=== PATIENT | female | born 1990 | race Caucasian/White ===

== ENCOUNTER 2016-07-10 06:43 | Inpatient (IN) | payer MEDICARE, MEDICAID ==
[2016-07-10] MEDS ORDERED: CEFAZOLIN SODIUM 2 GRAM DUPLEX 2 G in Premix (D5W) 50 ml 1 EACH IV PRN (07:01)
[2016-07-10 07:13] LABS: HEMATOCRIT 32.6 % (37.0-47.0); HEMOGLOBIN 10.9 gm/l (12.0-16.0); MEAN CELL VOLUME 88.3 fl (81.0-99.0); MEAN CORPUSCULAR HEMOGLOBIN 29.5 pg (27.0-31.0); MEAN CORPUSCULAR HGB CONC 33.4 g/dl (33.0-37.0); RED CELL DISTRIBUTION WIDTH 14.5 % (11.5-14.5)
[2016-07-10] MEDS ORDERED: SODIUM CHLORIDE 0.9% FLUSH 10 ML ONE (07:13)
[2016-07-10] MEDS ORDERED: LACTATED RINGERS 1,000 ML IV SCH (07:15)
[2016-07-10] MEDS ORDERED: OXYTOCIN 10 UNITS/ML VIAL ONE ×3 (07:16→08:17)
[2016-07-10] MEDS ORDERED: SPINAL PROCEDURAL TRAY 1 EACH ONE (07:16)
[2016-07-10] MEDS ORDERED: MORPHINE SULFATE (DURAMORPH) 1 MG/ML 10ML AMP ONE (07:16)
[2016-07-10] MEDS ORDERED: CEFAZOLIN SODIUM 2 GRAM DUPLEX 50 ML IV ONE (07:26)
[2016-07-10] MEDS ORDERED: PROPOFOL 20 ML IV ONE (07:35)
[2016-07-10] MEDS ORDERED: SUCCINYLCHOLINE CHL 20 MG/ML DOSE ONE (07:35)
[2016-07-10] MEDS ORDERED: FENTANYL 100 MCG/2 ML VIAL ONE ×4 (07:53→09:22)
[2016-07-10] MEDS ORDERED: ROCURONIUM BROMIDE 10 MG/ML DOSE IV ONE (07:53)
[2016-07-10] MEDS ORDERED: LIDOCAINE 2% (PRES FREE) 5 ML VIAL ONE (07:55)
[2016-07-10] MEDS ORDERED: MORPHINE SULFATE 2 MG/ML SYRINGE IV PRN (08:10)
[2016-07-10] MEDS ORDERED: NALOXONE HCL 0.4 MG/ML VIAL IV PRN (08:10)
[2016-07-10] MEDS ORDERED: DIPHENHYDRAMINE HCL 50 MG/1 ML VIAL IV PRN ×2 (08:10→09:56)
[2016-07-10] MEDS ORDERED: HYDROMORPHONE HCL 2 MG/ML SYRINGE IV PRN (08:10)
[2016-07-10] MEDS ORDERED: PROMETHAZINE HCL 25 MG/ML VIAL IM PRN (08:10)
[2016-07-10] MEDS ORDERED: MORPHINE SULFATE 10 MG/ML SYRINGE IV PRN (08:10)
[2016-07-10] MEDS ORDERED: ONDANSETRON 4 MG/2ML 2 ML VIAL IV PRN ×2 (08:10→09:56)
[2016-07-10] MEDS ORDERED: EPHEDRINE SULFATE 50 MG/ML 1ML VIAL IV PRN (08:10)
[2016-07-10] MEDS ORDERED: HYDROMORPHONE HCL 1 MG/ML SYRINGE IV PRN (08:10)
[2016-07-10] MEDS ORDERED: MORPHINE SULFATE 4 MG/ML SYRINGE IV PRN (08:10)
[2016-07-10] MEDS: KETOROLAC TROMETHAMINE 30 MG/ML 1 ML VIAL IV SCH ×3 (08:10→21:51)
[2016-07-10] MEDS ORDERED: NALBUPHINE HCL 20 MG/ML AMP IV PRN (08:10)
[2016-07-10] MEDS ORDERED: NEOSTIGMINE METHYLSULFATE 1 MG/ML DOSE ONE (08:13)
[2016-07-10] MEDS ORDERED: GLYCOPYRROLATE 0.2 MG/ML 1ML VIAL ONE (08:13)
[2016-07-10] MEDS ORDERED: EPHEDRINE SULFATE UD SYR 25 MG 25 MG/5 ML SYRINGE IV ONE (08:38)
[2016-07-10] MEDS ORDERED: PUMP TUBING ONE (08:56)
[2016-07-10] MEDS: FENTANYL 100 MCG/2 ML VIAL IV PRN ×2 (09:15→09:25)
--- NOTE | 2016-07-10 09:19 | PDOC37 ---
Procedure: Section Date of Procedure: 07/10/16 Start Time: 07:40 Preoperative Diagnosis: 1. 38+3 week intrauterine . 2. Caitlyn breech presentation 3. Active labor Postoperative Diagnosis: Same Surgeon: Emigdio Diaz MD Assist: Shyanne Cervantes MD Indication for Procedure: 26 year old, at 38 weeks 3 days presented in active labor, dilated to 5cm, in caitlyn breech position. Anesthesia: Spinal with Duramorph that did not facilitate pain relief and was followed by general anesthesia. Some lidocaine was applied to the edges of the incision before general was performed in an attempt to afford the pt some anesthesia. Complications: None Estimated Blood Loss: 600 mLs IV Fluids: 2700 mLs of LR Medications: 2 gm of Ancef for routine prophylaxis. 30 units of Pitocin. Urine Output: 50 mLs of clear urine Findings: Normal uterus, ovaries, and tubes. Procedure: The patient was taken to the operating room where epidural anesthesia was found to be inadequate and general anesthesia was then performed after waiting 10 min. for the spinal anesthesia to take effect. She was then prepared and draped in the normal sterile fashion in the dorsal supine position with a leftward tilt. A timeout was performed. A Pfannensteil skin incision was then made with the scalpel and carried through to the underlying layer of fascia with the scalpel. The fascia was incised in the midline and the incision extended laterally with the Martinez scissors. The superior aspect of the fascial incision was then grasped with the Apolinar clamps, elevated, and the underlying rectus muscles dissected off bluntly and sharply where needed. Attention was then turned to the inferior aspect of the incision which, in a similar fashion, was grasped, tented up with the Apolinar clamps, and the rectus muscle dissected off bluntly and sharply with Martinez scissors. The rectus muscles were then in the midline, and the peritoneum was identified and entered bluntly. The peritoneal incision was then extended with good visualization of the bladder. The bladder blade was then inserted but no bladder flap was created. The bladder blade was then reinserted and the lower uterine segment incised in a transverse fashion with the scalpel. The uterine incision was then extended laterally by pulling superolaterally on both sides. Membranes were ruptured and fluid was clear. The bladder blade was removed the infant's bottom was grasped and flexed up. Each leg was pulled out and extended and then a dry towel was placed around the thorax. Each arm was swept out, followed by head flexion using the towel around the thorax as traction. The cord was clamped and cut. The infant was handed off to the waiting staff field engineer. Cord gases were not sent The placenta was then delivered with gentle cord traction. The uterus was then exteriorized and cleared of all clots and debris. The uterine incision was repaired with 0 chromic in a running, locked fashion. A second layer of the same suture was used in an imbricating fashion to obtain excellent hemostasis. The gutters were cleared of all clots. The uterus was returned to the abdomen. The peritoneum was closed with 4-0 vicryl. The fascia was reapproximated with 0 Vicryl in a running fashion. The subcutaneous tissue was reapproximated with 4- 0 vicryl. The skin was closed with 4-0 monocryl in a subcuticular fashion. The patient tolerated the procedure well. Sponge, lap and needle counts were correct times three. A debriefing was held at the end of the procedure with anesthesia and nursing staff. The patient was taken to the recovery room in stable condition.
--- NOTE | 2016-07-10 09:22 | PCMAN ---
OB Admission Note - History : 1 Term: 0 EDC:: 07/21/16 Gestational Age (weeks): 38 Days (#/7): 3 Admit Cervical Dilation:: 5 Admit Cervical Effacement (%):: 80 Admit Station:: -1 Admit Presentaton:: caitlyn breech Membrane Status: Ruptured Contractions: Yes Contraction Frequency:: 3 in 10 Summary of Course:: Pt presented to me at >20 weeks in [facility] for her first OB visit, so dating was not very accurate. She then was lost to f/u until last week when she started coming into the office again to be seen. UDS in the office was negative last week. She was GBS negative. Otherwise, uneventful course, just very sparse care and late to care. - Labs GBS Status: Negative Abnormal Labs: None
[2016-07-10] MEDS ORDERED: BENZOCAINE/MENTHOL 60 APPLIC/BOT TP PRN (09:56)
[2016-07-10] MEDS ORDERED: KETOROLAC TROMETHAMINE 30 MG/ML 1 ML VIAL IV PRN (09:56)
[2016-07-10] MEDS ORDERED: OXYCODONE/ACETAMINOPHEN 5/325 MG TABLET PO PRN (09:56)
[2016-07-10] MEDS ORDERED: DIPHENHYDRAMINE HCL 25 MG CAPSULE PO PRN (09:56)
[2016-07-10] MEDS ORDERED: DOCUSATE SODIUM 100 MG CAPSULE PO SCH (09:56)
[2016-07-10] MEDS ORDERED: LANOLIN 50 APPLIC/7G TUBE TP PRN ×2 (09:56)
[2016-07-10] MEDS: PRENATAL VIT/FE FUMARATE/FA 1 TABLET PO SCH (09:56)
[2016-07-10] MEDS ORDERED: MAGNESIUM HYDROXIDE 30 ML UDCUP PO PRN (09:56)
[2016-07-10 10:45] VITALS: BMI 25.6
[2016-07-10] MEDS ORDERED: LACTATED RINGERS 1,000 ML ONE (10:47)
[2016-07-10] MEDS ORDERED: IV START KIT ONE (10:47)
[2016-07-10 11:03] LABS: AMPHETAMINES/METHAMPHETAMINES NEGATIVE (NEGATIVE); COCAINE NEGATIVE (NEGATIVE); MARIJUANA NEGATIVE (NEGATIVE); METHADONE NEGATIVE (NEGATIVE); OPIATES NEGATIVE (NEGATIVE); TRICYCLIC ANTIDEPRESSANTS NEGATIVE (NEGATIVE)
[2016-07-10] MEDS: DOCUSATE SODIUM 100 MG CAPSULE PO SCH ×2 (15:40→21:50)
[2016-07-11] MEDS: OXYCODONE HCL 5 MG TABLET PO PRN ×7 (02:27→22:17)
[2016-07-11] MEDS: KETOROLAC TROMETHAMINE 30 MG/ML 1 ML VIAL IV SCH ×2 (04:33→13:24)
[2016-07-11 06:30] LABS: HEMATOCRIT 23.2 % (37.0-47.0); HEMOGLOBIN 7.5 gm/l (12.0-16.0); MEAN CELL VOLUME 89.6 fl (81.0-99.0); MEAN CORPUSCULAR HGB CONC 32.3 g/dl (33.0-37.0); RED CELL DISTRIBUTION WIDTH 14.6 % (11.5-14.5)
[2016-07-11] MEDS ORDERED: KETOROLAC TROMETHAMINE 30 MG/ML 1 ML VIAL IV PRN (08:10)
--- NOTE | 2016-07-11 08:58 | PDOC44 ---
- Subjective Day: 1 Pt doing okay. She has gotten up and ambulated. Very tired, frustrated with . Reports Pain Tolerable, Reports , Reports Lochia Light - Objective Temp Pulse Resp BP Pulse Ox 98.0 F 77 18 119/57 98 07/11/16 06:06 07/11/16 06:06 07/11/16 06:06 07/11/16 06:06 07/10/16 18:15 Lab Results 07/11/16 05:30 WBC 23.0 H RBC 2.59 L Hgb 7.5 L D Hct 23.2 L Plt Count 329 07/11/16 05:30 MCHC 32.3 L RDW 14.6 H Current Medications Generic Name Dose Route Start Last Admin Trade Name Freq PRN Reason Stop Dose Admin Benzocaine/Menthol 1 applic 07/10/16 09:56 Dermoplast TP PRN PRN Patient Comfort Diphenhydramine HCl 25 - 50 mg 07/10/16 09:56 Benadryl PO Q6H PRN Itching (Mild/Moderate) Diphenhydramine HCl 25 - 50 mg 07/10/16 09:56 Benadryl IV Q6H PRN Itching (Severe) Docusate Sodium 100 mg 07/10/16 09:56 07/10/16 21:50 Colace PO 100 mg BID LEX Administration Emollient Ointment 1 applic 07/10/16 09:56 [id number] TP PRN PRN sore nipples Fentanyl Citrate 25 - 50 mcg 07/10/16 09:54 07/10/16 09:25 Fentanyl IV 50 mcg Q2M PRN Administration Pain Ibuprofen 800 mg 07/10/16 09:56 Motrin PO Q6H PRN Pain (Mild) Ketorolac Tromethamine 30 mg 07/11/16 08:10 Toradol IV Q6H PRN Pain (Mild/Moderate) Magnesium Hydroxide 30 ml 07/10/16 09:56 Milk Of Magnesia PO BEDTIME PRN Constipation Multivi/Iron Carb/Fe Sulf/FA/Prenat 1 tab 07/10/16 09:56 07/10/16 09:56 Plus PO Not Given DAILY LEX Ondansetron HCl 4 mg 07/10/16 09:56 Zofran IV Q6H PRN Nausea/Vomiting Oxycodone HCl 5 - 10 mg 07/10/16 09:56 07/11/16 06:04 Roxicodone PO 5 mg Q3H PRN Administration Pain (Severe) Oxycodone/Acetaminophen 1 - 2 tab 07/10/16 09:56 07/10/16 20:02 Percocet 5/325 PO 1 tab Q4H PRN Administration Pain (Moderate) Sodium Chloride 10 ml 07/10/16 17:00 07/11/16 07:22 Normal Saline 10ml Flush IV Not Given Q8HR LEX Sodium Chloride 10 ml 07/10/16 09:56 07/11/16 04:34 Normal Saline 10ml Flush IV 10 ml PRN PRN Administration IV Flush - Physical Exam Skin: Other (Bandage still in place - to be taken off in the shower today.) - Problems:Assessment/Plan (1) care following delivery Status: AcuteAssessment/Plan: POD #1 s/p PLTCS for caitlyn breech presentation - bandage still in place - will have it taken off in the shower today - encourage ambulation - remove rutherford catheter - plan to have her visit with today as well as care management to organize support at home - anticipate full 3 day stay Disposition: Stable, Anticipate DC to Home
[2016-07-11] MEDS: IBUPROFEN 800 MG TABLET PO PRN ×3 (11:26→23:58)
[2016-07-11] MEDS: DOCUSATE SODIUM 100 MG CAPSULE PO SCH ×2 (11:26→22:17)
[2016-07-11] MEDS: PRENATAL VIT/FE FUMARATE/FA 1 TABLET PO SCH (11:26)
[2016-07-12] MEDS: OXYCODONE HCL 5 MG TABLET PO PRN ×5 (01:52→19:49)
[2016-07-12] MEDS: IBUPROFEN 800 MG TABLET PO PRN ×3 (06:02→19:49)
--- NOTE | 2016-07-12 07:29 | PDOC44 ---
- Subjective Day: 2 pt feeling better after getting some sleep last night with the nurses feeding baby with banked breastmilk and what mom had pumped. Reports Flatus, Reports Pain Tolerable, Reports , Reports Tolerating Regular Diet, Denies Nausea, Denies Vomiting - Objective Temp Pulse Resp BP Pulse Ox 97.8 F 71 16 123/60 98 07/12/16 01:49 07/12/16 01:49 07/12/16 01:49 07/12/16 01:49 07/10/16 18:15 Current Medications Generic Name Dose Route Start Last Admin Trade Name Freq PRN Reason Stop Dose Admin Benzocaine/Menthol 1 applic 07/10/16 09:56 Dermoplast TP PRN PRN Patient Comfort Diphenhydramine HCl 25 - 50 mg 07/10/16 09:56 Benadryl PO Q6H PRN Itching (Mild/Moderate) Diphenhydramine HCl 25 - 50 mg 07/10/16 09:56 Benadryl IV Q6H PRN Itching (Severe) Docusate Sodium 100 mg 07/10/16 09:56 07/11/16 22:17 Colace PO 100 mg BID LEX Administration Emollient Ointment 1 applic 07/10/16 09:56 [id number] TP PRN PRN sore nipples Fentanyl Citrate 25 - 50 mcg 07/10/16 09:54 07/10/16 09:25 Fentanyl IV 50 mcg Q2M PRN Administration Pain Ibuprofen 800 mg 07/10/16 09:56 07/12/16 06:02 Motrin PO 800 mg Q6H PRN Administration Pain (Mild) Ketorolac Tromethamine 30 mg 07/11/16 08:10 Toradol IV Q6H PRN Pain (Mild/Moderate) Magnesium Hydroxide 30 ml 07/10/16 09:56 Milk Of Magnesia PO BEDTIME PRN Constipation Multivi/Iron Carb/Fe Sulf/FA/Prenat 1 tab 07/10/16 09:56 07/11/16 11:26 Plus PO 1 tab DAILY LEX Administration Ondansetron HCl 4 mg 07/10/16 09:56 Zofran IV Q6H PRN Nausea/Vomiting Oxycodone HCl 5 - 10 mg 07/10/16 09:56 07/12/16 06:02 Roxicodone PO 10 mg Q3H PRN Administration Pain (Severe) Oxycodone/Acetaminophen 1 - 2 tab 07/10/16 09:56 07/10/16 20:02 Percocet 5/325 PO 1 tab Q4H PRN Administration Pain (Moderate) Sodium Chloride 10 ml 07/10/16 17:00 07/11/16 11:31 Normal Saline 10ml Flush IV 10 ml Q8HR LEX Administration Sodium Chloride 10 ml 07/10/16 09:56 07/11/16 04:34 Normal Saline 10ml Flush IV 10 ml PRN PRN Administration IV Flush - Physical Exam General: Afebrile, No Acute Distress Psych/Mental Status: Mood/Affect Appropriate, Bonding Well Neurological: Alert, Oriented x 4 Lungs: Clear to Auscultation Bilaterally Cardiovascular: Regular Rate and Rhythm Breast: Nipples Intact Fundus: Firm, Midline Extremities: Full ROM, No Edema, No Tenderness Skin: Normal Color, Warm, Dry, Intact, No Rash Wound MESS ATTENDANT CREW: Dressing Clean/Dry/Intact, Well Approximated - Problems:Assessment/Plan (1) care following delivery Status: AcuteAssessment/Plan: POD #2 s/p PLTCS for caitlyn breech presentation - Incision CDI - encourage ambulation - plan to have her visit with today as well as care management to organize support at home - d/c home on 07/13/16 (2) Anemia, Status: AcuteAssessment/Plan: starting iron today Disposition: Stable, Anticipate DC Home Tomorrow
[2016-07-12] MEDS: FERROUS SULFATE (65 Fe) 325 MG TABLET PO SCH (10:07)
[2016-07-12] MEDS: PRENATAL VIT/FE FUMARATE/FA 1 TABLET PO SCH (10:07)
[2016-07-12] MEDS: DOCUSATE SODIUM 100 MG CAPSULE PO SCH ×2 (10:07→21:26)
[2016-07-13] MEDS: OXYCODONE HCL 5 MG TABLET PO PRN ×3 (00:39→08:03)
[2016-07-13] MEDS: IBUPROFEN 800 MG TABLET PO PRN ×2 (03:14→11:02)
[2016-07-13 06:18] LABS: HEMATOCRIT 25.7 % (37.0-47.0); HEMOGLOBIN 8.3 gm/l (12.0-16.0); MEAN CELL VOLUME 89.5 fl (81.0-99.0); MEAN CORPUSCULAR HEMOGLOBIN 28.9 pg (27.0-31.0); MEAN CORPUSCULAR HGB CONC 32.3 g/dl (33.0-37.0); RED CELL DISTRIBUTION WIDTH 14.8 % (11.5-14.5)
--- NOTE | 2016-07-13 07:46 | PDOC39B ---
Hospital Course: ADMIT DATE: 07/10/16 DISCHARGE DATE: 07/13/16 ADMISSION DIAGNOSES: Caitlyn Breech presentation, in active labor, term PROCEDURES: section with spinal followed by general anesthesia HISTORY OF PRESENT ILLNESS: 26 year old G1 T1 L0 at 38 weeks 3 days presenting with term active labor with baby found to be in caitlyn breech position. I was then called to come in and confirm and start the process for a section. HOSPITAL COURSE: The patient underwent delivery via c/s indicated for caitlyn breech position. The surgery was uncomplicated other than the spinal anesthesia being unable to provide adequate pain control which resulted in the pt receiving general anesthesia. By day of discharge the patient is ambulating, eating, voiding, and passing flatus without difficulty. Pain is controlled and lochia is appropriate. She is with some anxiety, but is working with her closely and she has an appointment with the [facility] on wednesday07/15/16. f/u with myself for incision check on 07/17/16. Sutures used, no loy needing to be taken out. - Physical Exam Vital Signs: Temp Pulse Resp BP Pulse Ox 98.4 F 88 16 121/66 98 07/13/16 03:19 07/13/16 03:19 07/13/16 03:19 07/13/16 03:19 07/10/16 18:15 - Discharge Diagnosis (1) care following delivery Status: AcuteAssessment/Plan: POD #2 s/p PLTCS for caitlyn breech presentation - Incision CDI - encourage ambulation - plan to have her visit with today as well as care management to organize support at home - d/c home on 07/13/16 (2) Anemia, Status: AcuteAssessment/Plan: starting iron today - Discharge Plan Prescriptions: Docusate Sodium [COLACE 100 MG CAPSULE (SHF)] 100 mg PO BID PRN #30 cap PRN Reason: Constipation Ibuprofen [Motrin] 800 mg PO Q6H PRN #60 tablet PRN Reason: Pain FERROUS SULFATE (65 Fe) [IRON FERROUS SULFATE 325 MG TABLET (SHF)] 325 mg PO DAILY #20 tab Oxycodone HCl [ROXICODONE 5 MG IR TABLET (SHF)] 5 - 10 mg PO Q6H PRN #20 tab PRN Reason: Pain Follow-Up: Emigdio Diaz MD [Primary Care Provider] - 07/17/16
[2016-07-13] MEDS: FERROUS SULFATE (65 Fe) 325 MG TABLET PO SCH (08:02)
[2016-07-13] MEDS: PRENATAL VIT/FE FUMARATE/FA 1 TABLET PO SCH (08:02)
[2016-07-13] MEDS: DOCUSATE SODIUM 100 MG CAPSULE PO SCH (08:02)
[2016-07-13 10:59] VITALS: BP 130/69
--- NOTE | 2016-07-14 12:18 | SURGPATH ---
[facility] [address] [place] [id number] Patient Name: TATI MCWILLIAMS MR#: [id number] : 1990 Gender: F Specimen #: [id number] Collected: 07/10/2016 Received: 07/13/2016 Reported: 07/14/2016 Submitting Phys: KAREEN MORALES Copy To Phys: [facility] Clinical History / Pre-Operative Diagnosis: Specimen Source / Surgical Procedure Performed: Unknown specimen taken from abdomen during primary section Interpretation: TISSUE TAKEN FROM ABDOMEN DURING PRIMARY SECTION: - BLAND MARKEDLY EDEMATOUS TISSUE WITH BENIGN MESOTHELIAL CELLS Electronically Signed Out Neri Lancaster M.D. Gross Description: The specimen is received in formalin labeled with the patient's name and "unknown object from abdomen". The specimen consists of a 2.2 x 2.2 x 0.6 cm polypoid edematous portion of brown soft tissue or a deflated cyst. The specimen is marked with black ink and entirely submitted in one cassette. MAE Melendrez Microscopic Description: The sections show markedly edematous tissue containing bland mesothelial cells and red blood cells. There is a small amount of fibrous connective tissue present. A true cyst lining is not evident. There are no atypical features identified. [id number] M79.89
== END 2016-07-13 13:00 | disposition home or self-care (01) | DRG 765 ==
LOC: FBCOUT 06:43 → FBC 06:49 → FBCOUT 06:50 → FBC 06:50
PROVIDERS: ADMIT Family Medicine; ATTEND Family Medicine
PROC: 10D00Z1 Extraction of Products of Conception, Low, Open Approach (ICD-10-PCS; principal; 2016-07-10)
DX: O32.1XX0 Maternal care for breech presentation, not applicable or unspecified (principal); D62 Acute posthemorrhagic anemia; Z3A.38 38 weeks gestation of pregnancy; Z37.0 Single live birth; O90.81 Anemia of the puerperium

== ENCOUNTER 2016-07-17 13:26 | Outpatient (CLI) | payer MEDICARE, MEDICAID | END 2016-07-17 13:27 | disposition home or self-care (01) | LOC: BABIESSH 13:26 | PROVIDERS: ATTEND Family Medicine | DX: Z39.1 Encounter for care and examination of lactating mother (principal) ==

== ENCOUNTER 2016-07-19 13:16 | Outpatient (CLI) | payer MEDICARE, MEDICAID | END 2016-07-19 13:17 | disposition home or self-care (01) | LOC: BABIESSH 13:16 | PROVIDERS: ATTEND Family Medicine | DX: Z39.1 Encounter for care and examination of lactating mother (principal) ==